=== PATIENT | male | born 1950 ===

== ENCOUNTER 2020-11-28 07:11 | Day surgery (SDC) | payer OTHER ==
[~2020-11-28 07:11] MED LIST: LISINOP PO; SIMVAST PO
== END 2020-11-28 20:10 | disposition home or self-care (01) ==
LOC: CIR.AMB 07:11
PROVIDERS: ATTEND Orthopaedic Surgery Hand Surgery
DX: S66.821A Laceration of other specified muscles, fascia and tendons at wrist and hand level, right hand, initial encounter (principal); S64.8X1A Injury of other nerves at wrist and hand level of right arm, initial encounter; M66.241 Spontaneous rupture of extensor tendons, right hand; Z20.822 Contact with and (suspected) exposure to COVID-19